=== PATIENT | female | born 1945 | race African-American/Black ===

== ENCOUNTER 2016-11-22 12:55 | Outpatient (RCR) | payer OTHER | END 2016-11-26 | disposition home or self-care (01) | LOC: PTY 12:55 | PROVIDERS: ATTEND Internal Medicine | DX: M25.561 Pain in right knee (principal); I10 Essential (primary) hypertension; E78.5 Hyperlipidemia, unspecified; M19.91 Primary osteoarthritis, unspecified site; F32.9 Major depressive disorder, single episode, unspecified; F41.9 Anxiety disorder, unspecified | CPT/HCPCS: 97035; 97110; 97140; 97162; G0283 ==

== ENCOUNTER 2016-12-09 13:45 | Outpatient (RCR) | payer OTHER | END 2016-12-27 | disposition home or self-care (01) | LOC: PTY 13:45 | PROVIDERS: ATTEND Internal Medicine | DX: M25.561 Pain in right knee (principal); I10 Essential (primary) hypertension; E78.5 Hyperlipidemia, unspecified; M19.90 Unspecified osteoarthritis, unspecified site; F32.9 Major depressive disorder, single episode, unspecified; F41.9 Anxiety disorder, unspecified | CPT/HCPCS: 97035; 97110; 97140; G0283 ==

== ENCOUNTER 2017-01-23 13:00 | Outpatient (RCR) | payer OTHER | END 2017-01-26 | disposition home or self-care (01) | LOC: PTY 13:00 | PROVIDERS: ATTEND Internal Medicine | DX: M25.561 Pain in right knee (principal); I10 Essential (primary) hypertension; E78.5 Hyperlipidemia, unspecified; M19.90 Unspecified osteoarthritis, unspecified site; F32.9 Major depressive disorder, single episode, unspecified; F41.9 Anxiety disorder, unspecified | CPT/HCPCS: 97035; 97110; G0283 ==

== ENCOUNTER 2017-02-07 13:32 | Outpatient (RCR) | payer OTHER | END 2017-02-26 | disposition home or self-care (01) | LOC: PTY 13:32 | PROVIDERS: ATTEND Internal Medicine | DX: M25.561 Pain in right knee (principal) | CPT/HCPCS: 97035; 97110; G0283 ==

== ENCOUNTER 2017-03-06 11:50 | Outpatient (RCR) | payer OTHER | END 2017-03-29 | disposition home or self-care (01) | LOC: PTY 11:50 | PROVIDERS: ATTEND Internal Medicine | DX: M25.561 Pain in right knee (principal); M54.40 Lumbago with sciatica, unspecified side | CPT/HCPCS: 97110; 97140; 97162; G0283 ==

== ENCOUNTER 2017-03-13 10:00 | Outpatient (RCR) | payer OTHER | END 2017-03-29 | disposition home or self-care (01) | LOC: PTY 10:00 | PROVIDERS: ATTEND Internal Medicine | DX: M25.561 Pain in right knee (principal); M54.40 Lumbago with sciatica, unspecified side | CPT/HCPCS: 97035; 97110; G0283 ==

== ENCOUNTER 2017-03-31 13:30 | Outpatient (RCR) | payer OTHER | END 2017-04-26 | disposition home or self-care (01) | LOC: PTY 13:30 | PROVIDERS: ATTEND Internal Medicine | DX: M25.561 Pain in right knee (principal) | CPT/HCPCS: 97110; G0283 ==

== ENCOUNTER 2017-04-03 12:45 | Outpatient (RCR) | payer OTHER | END 2017-04-26 | disposition home or self-care (01) | LOC: PTY 12:45 | PROVIDERS: ATTEND Internal Medicine | DX: M25.561 Pain in right knee (principal); M54.40 Lumbago with sciatica, unspecified side; I10 Essential (primary) hypertension; M19.90 Unspecified osteoarthritis, unspecified site; F32.9 Major depressive disorder, single episode, unspecified; F41.9 Anxiety disorder, unspecified ==